=== PATIENT | female | born 1985 | race Caucasian/White ===

== ENCOUNTER 2018-09-17 00:53 | Emergency (ER) | payer MEDICAID ==
[~2018-09-17] VITALS: Ht 165.1 cm; Wt 68.0 kg
[2018-09-17] MEDS ORDERED: HYDROcodone-ACET 5/325MG TAB PO ONE ×2 (02:30→05:30)
[2018-09-17] MEDS ORDERED: TETRACAINE HCL 0.5% OPTH(EYE) SOLN 4ML LEFTEYE ONE ×3 (04:00→06:00)
[2018-09-17 05:21] VITALS: BP 125/63
[2018-09-17] MEDS ORDERED: cefTRIAXone 1GM/50ML D5W 50 ML IV ONE (05:30)
== END 2018-09-17 05:20 | disposition home or self-care (01) ==
LOC: ER 00:57
DX: O26.891 Other specified pregnancy related conditions, first trimester (principal); H05.012 Cellulitis of left orbit; Z3A.01 Less than 8 weeks gestation of pregnancy
CPT/HCPCS: 81025; 96365; 99283; J0696

== ENCOUNTER 2022-06-05 16:41 | Emergency (ER) | payer MEDICAID ==
[~2022-06-05] VITALS: Ht 165.1 cm; Wt 86.0 kg
[2022-06-05 17:00] VITALS: BP 104/60
== END 2022-06-05 22:54 | disposition home or self-care (01) ==
LOC: ER 16:41
DX: O26.893 Other specified pregnancy related conditions, third trimester (principal); R07.89 Other chest pain; Z3A.38 38 weeks gestation of pregnancy; Z87.891 Personal history of nicotine dependence
CPT/HCPCS: 76705; 93005